=== PATIENT | male | born 1995 | race Caucasian/White ===

== ENCOUNTER 2023-11-19 09:06 | Day surgery (SDC) | payer OTHER ==
[~2023-11-19] VITALS: Ht 188 cm; Wt 110.7 kg
[~2023-11-19 09:06] MED LIST: LEXA1TAB PO; LEXA5TAB13 PO; LORA-243 PO; NIAC50TA9 PO; THERTAB52 PO; VITA100024 PO; VITA100093 PO
[2023-11-19] MEDS ORDERED: propofoL 200 MG/20 ML VIAL As Ordered ONE (09:45)
[2023-11-19] MEDS ORDERED: SUGAMMADEX SODIUM 500 MG/5 ML VIAL (BRIDION) As Ordered ONE (09:45)
[2023-11-19] MEDS ORDERED: LR 1,000 ML IV SCH (09:45)
[2023-11-19] MEDS ORDERED: ONDANSETRON 4MG 2ML VIAL As Ordered ONE (09:45)
[2023-11-19] MEDS ORDERED: ACETAMINOPHEN 1000MG 100ML IV BAG As Ordered ONE (09:45)
[2023-11-19] MEDS ORDERED: fentaNYL 100 MCG/2 ML INJECTION As Ordered ONE (09:45)
[2023-11-19] MEDS ORDERED: ROCURONIUM BROMIDE 50MG/5ML VIAL As Ordered ONE (09:45)
[2023-11-19] MEDS ORDERED: LIDOCAINE 2% 100MG/5ML SDV (FOR ANES.) As Ordered ONE (09:45)
[2023-11-19] MEDS ORDERED: MIDAZOLAM INJ 2MG/2ML VIAL As Ordered ONE (09:46)
[2023-11-19] MEDS: ROPIvacaine 0.5% 30ML VIAL PN ONE (10:45)
[2023-11-19] MEDS: MIDAZOLAM INJ 2MG/2ML VIAL IV PRN (11:13)
[2023-11-19] MEDS: fentaNYL 100 MCG/2 ML INJECTION IV PRN (11:13)
[2023-11-19] MEDS: TRANEXAMIC ACID 100 MG/ML 10ML VIAL As Ordered ONE (11:16)
[2023-11-19] MEDS: TRANEXAMIC ACID 100 MG/ML 10ML VIAL IV ONE (11:41)
[2023-11-19] MEDS: ceFAZolin SOD 2 GM in IV 1 EA IV ONE (11:41)
[2023-11-19] MEDS: EPINEPHrine 1MG/ML INJ 30ML MD-VIAL As Ordered ONE (12:46)
[2023-11-19] MEDS ORDERED: dexmedeTOMIDine (4MCG/ML)200MCG/50ML BTL (PRECEDEX) As Ordered ONE (13:45)
[2023-11-19] MEDS: VANCOMYCIN 1000MG/20ML VIAL As Ordered ONE (14:39)
[2023-11-19] MEDS ORDERED: fentaNYL 100 MCG/2 ML INJECTION IV PRN (15:10)
[2023-11-19] MEDS: oxyCODONE 5MG TAB PO PRN (15:37)
[2023-11-19] MEDS: ONDANSETRON 4MG 2ML VIAL IV PRN (15:37)
[2023-11-19 16:24] VITALS: BP 117/63; TEMP 97.7; O2SAT 98
== END 2023-11-19 16:46 | disposition home or self-care (01) ==
LOC: M SDC 09:06
PROVIDERS: ATTEND Orthopaedic Surgery
DX: S83.014A Lateral dislocation of right patella, initial encounter (principal); M22.41 Chondromalacia patellae, right knee; W00.0XXA Fall on same level due to ice and snow, initial encounter; Y93.01 Activity, walking, marching and hiking; Y92.009 Unspecified place in unspecified non-institutional (private) residence as the place of occurrence of the external cause; F43.10 Post-traumatic stress disorder, unspecified; F41.9 Anxiety disorder, unspecified; F32.9 Major depressive disorder, single episode, unspecified; Z79.899 Other long term (current) drug therapy
CPT/HCPCS: 27566; 76000; C1713; C1762; J0131; J0171; J0665; J0690; J1100; J2250; J2405; J3010; J3370